=== PATIENT | female | born 2000 | race Caucasian/White ===

== ENCOUNTER 2023-05-24 21:46 | Emergency (ER) | payer SELFPAY ==
--- NOTE | ~2023-05-24 | XR_ITS ---
EXAMINATION: XR hand LT min 3V INDICATION: Left hand pain, initial encounter TECHNIQUE: Three views of the left hand are obtained. COMPARISON: 04/19/2014 FINDINGS: There is an acute, mildly comminuted, nondisplaced fracture at the base of the fifth metaca rpal which appears to spare the joint space. No additional fracture is identified. There is soft tiss ue swelling of the hand at the site of the fracture. The joint spaces are normal. IMPRESSION: 1. Acute, mildly comminuted fracture at the base of the fifth metacarpal. Reviewed, dictated and finalized at location [facility]
[2023-05-24 21:47] VITALS: BP 174/98; PULSE 131; RESP 16; TEMP 36.7; O2SAT 93
[2023-05-25 02:38] VITALS: BP 150/89; RESP 20; O2SAT 98
--- NOTE | 2023-05-25 03:09 | ED.UPPEXIN ---
HPI - Extremity Injury (Upper) General Chief Complaint: Extremity Injury, Upper Stated Complaint: L hand injury Time Seen by Provider: 05/25/23 03:08 Source: patient Limitations: no limitations History of Present Illness HPI narrative: Patient is a 22-year-old female presents to the emergency department complaining of a left hand injury. Patient states around 9:30 p.m. last night she punched a chair and developed pain along the 5th metacarpal region of the hand with a small amount of bruising. Patient denies any history of injury to this region in the past. Patient notes that she is left handed. Patient denies numbness, weakness, blood loss, paresthesias, any other injuries. Patient admits to taking Advil for discomfort. Patient denies radiation of pain. Related Data Allergies Allergy/AdvReac Type Severity Reaction Status Date / Time Sulfa (Sulfonamide Allergy Mild FAMILY Verified 05/25/23 02:36 Antibiotics) ALLERGY SO PARENTS DON'T WANT HER TO HAVE IT Review of Systems Review of Systems: A 10 system review of systems was completed on the patient and is negative except for what is stated in the HPI. Nursing and ancillary documentation was reviewed. [facility] Family History Family History (System 08/08/21 @ 14:48 by Oleg Melara) Other Hypertension Social History Social History (System 08/08/21 @ 14:48 by Oleg Melara) Smoking status: Current every day smoker Alcohol intake: current Comments At time of signature, I have reviewed and agree with nursing past medical, surgical, social and family history unless otherwise noted. Please see the nursing chart for further information. There is no relevant family history pertinent to the presenting complaint. Exam Narrative: CONST: No acute distress. Well nourished. HENMT: Head is normocephalic and atraumatic. Moist mucous membranes. No posterior oropharynx erythema. EYES: No conjunctival icterus, injection, or pallor. PERRL. NECK: No meningeal signs. RESP: Able to speak in full sentences. Normal respiratory effort. CTAB. CARDIO: Regular rate. Regular rhythm. 2+ DP and radial pulses bilaterally. SKIN: No rashes or lesions noted on exposed skin. NEURO: Oriented x3. Moves all extremities. EXTREM/MSK/BACK: No pedal edema. Mild tenderness to palpation over the base of the left 5th metacarpal with scant bruising, no palpable or obvious deformity. No snuffbox tenderness to palpation. Extension of the wrist and flexion of the wrist of the left upper extremity actively are intact. Active range of motion of the fingers of the left hand are intact. Sensation intact to light touch throughout the left upper extremity. Compartments are soft throughout the left upper extremity. Capillary refills less than 2 seconds in the left upper extremity. Patient is able to make an okay sign, abduct and adduct all of her fingers and make a fist with the left upper extremity. PSYCH: Normal affect. Course Vital Signs Vital signs: Vital Signs Temperature 98.1 F 05/24/23 21:47 Pulse Rate 131 H 05/24/23 21:47 Respiratory Rate 16 05/24/23 21:47 Blood Pressure 174/98 H 05/24/23 21:47 Pulse Oximetry 93 05/24/23 21:47 Oxygen Delivery Room Air 05/24/23 21:47 Temperature 98.1 F 05/24/23 21:47 Pulse Rate 131 H 05/24/23 21:47 Respiratory Rate 20 05/25/23 02:38 Blood Pressure 150/89 H 05/25/23 02:38 Pulse Oximetry 98 05/25/23 02:38 Oxygen Delivery Room Air 05/24/23 21:47 Procedures Orthopedic Splinting/Casting Injury #1: Splinting/Casting Date: 05/25/23 Splinting/Casting Time: 03:33 Side: left Upper Extremity Injury Location: hand Upper Extremity Immobilizer: ulnar gutter Splint: prefabricated Pre-Procedure Neuro Vascular Exam: normal Post-Procedure Neuro Vascular Exam: normal MDM - Extremity Injury (Upper) MDM Narrative Medical decision making narrative:
[2023-05-25] MEDS: HYDROcodone/acetaminophen (*CRX) 5-325 MG TABLET 1 TAB PO (03:43)
== END 2023-05-25 04:27 | disposition home or self-care (01) ==
PROVIDERS: Emergency Provider Student in an Organized Health Care Education/Training Program
DX: S62.347A Nondisplaced fracture of base of fifth metacarpal bone, left hand, initial encounter for closed fracture (principal); F17.210 Nicotine dependence, cigarettes, uncomplicated; W22.8XXA Striking against or struck by other objects, initial encounter
CPT/HCPCS: 29125; 73130; 99284; A9270